=== PATIENT | male | born 1960 | race Caucasian/White ===

== ENCOUNTER → 2022-03-08 | Outpatient (CLI) | payer BC ==
--- NOTE | 2022-03-08 15:53 | XR ---
EXAMINATION TYPE: XR KUB DATE OF EXAM: 03/08/2022 COMPARISON: NONE HISTORY: Dysuria, lower down pain TECHNIQUE: KUB view of the abdomen was obtained with 3 radiographs. FINDINGS: Small bowel demonstrates no evidence for dilatation or air fluid levels. Gas and fecal material is seen in non-distended colon. No convincing evidence for pneumoperitoneum. Left pelvic calcifications measuring up to 5 mm. No definitive calculi overlying the expected regions of the kidneys. The lung bases are clear. Elevation of the right hemidiaphragm. The osseous structures are intact. Degenerative changes of the visualized spine. Mild osteoarthritic changes of both hips. IMPRESSION: 1. Nonobstructive bowel gas pattern. 2. Left pelvic calcifications favor to represent pelvic phleboliths.
== END | disposition home or self-care (01) ==
LOC: RADXRYALE 10:55
PROVIDERS: ATTEND Physician Assistant
DX: N28.89 Other specified disorders of kidney and ureter (principal); R30.0 Dysuria; R10.30 Lower abdominal pain, unspecified
CPT/HCPCS: 74018